=== PATIENT | female | born 1990 | race Caucasian/White ===

== ENCOUNTER 2018-04-24 16:43 | Outpatient (CLI) | payer OTHER ==
[2018-04-24 17:23] LABS: APPEARANCE,URINE SLIGHTLY-CLOUDY; BILIRUBIN,URINE NEGATIVE (NEGATIVE); COLOR,URINE YELLOW; GLUCOSE, URINE 50 mg/dL (NEGATIVE); KETONES,URINE NEGATIVE (NEGATIVE); LEUKOCYTE ESTERASE,URINE MODERATE (NEGATIVE); NITRITE,URINE NEGATIVE (NEGATIVE); PROTEIN,URINE NEGATIVE (NEGATIVE); URINE SPECIFIC GRAVITY 1.005; UROBILINOGEN,URINE NEGATIVE mg/dL (<2.0)
[2018-04-24 17:29] LABS: AMNISURE (ROM) NEGATIVE (NEGATIVE)
[2018-04-24 17:43] LABS: URINE AMPHETAMINES SCREEN NEGATIVE; URINE BARBITURATES SCREEN NEGATIVE; URINE BENZODIAZEPINES SCREEN NEGATIVE; URINE COCAINE SCREEN NEGATIVE; URINE MARIJUANA (THC) SCREEN NEGATIVE; URINE METHADONE SCREEN NEGATIVE; URINE PHENCYCLIDINE SCREEN NEGATIVE
--- NOTE | 2018-04-24 17:55 | Non Stress Test Report ---
Non Stress Test Datetime Report Generated by CPN: 04/24/2018 17:55 DEMOGRAPHIC EGA NST: 39.6 INDICATION Indication for Study: Other Indication for Study (NST) Other: LABOR CHECK MONITORING Monitor Explained: Monitor Explained; Test Explained; Patient Verbalized Understanding Time on Monitor: 04/24/2018 17:16 Time off Monitor: 04/24/2018 17:46 NST Duration: 30 NST INTERVENTIONS NST Interventions: PO Hydration; Reposition Patient BABY A: [id number] BABY A Movement : Present Contraction Frequency : X3 Contraction Frequency : irregular FHR Baseline : 145 Accelerations : 15X15 Variability : Moderate 6-25bpm NST Review: Meets Criteria for Reactive NST NST Review and Verified By : Amelia Camp RNC NST Results: Reactive NST REPORT Report Trigger: Send Report
== END 2018-04-24 17:51 | disposition home or self-care (01) ==
LOC: LC 16:43
PROVIDERS: ATTEND Obstetrics & Gynecology
PROC: 4A1HXCZ Monitoring of Products of Conception, Cardiac Rate, External Approach (ICD-10-PCS; principal; 2018-04-24)
DX: O47.1 False labor at or after 37 completed weeks of gestation (principal); Z3A.39 39 weeks gestation of pregnancy
CPT/HCPCS: 59025; 80307; 81005; 84112

== ENCOUNTER 2018-04-26 23:14 | Inpatient (IN) | payer OTHER ==
[2018-04-26] MEDS ORDERED: RINGERS SOLUTION,LACTATED 1,000 ML IV ONE (23:38)
[2018-04-26] MEDS ORDERED: RINGERS SOLUTION,LACTATED 1,000 ML IV PRN (23:38)
[2018-04-26 23:51] LABS: APPEARANCE,URINE CLOUDY; BILIRUBIN,URINE NEGATIVE (NEGATIVE); COLOR,URINE YELLOW; GLUCOSE, URINE 150 mg/dL (NEGATIVE); KETONES,URINE NEGATIVE (NEGATIVE); LEUKOCYTE ESTERASE,URINE MODERATE (NEGATIVE); NITRITE,URINE NEGATIVE (NEGATIVE); PROTEIN,URINE 100 mg/dL (NEGATIVE); URINE SPECIFIC GRAVITY 1.006; UROBILINOGEN,URINE NEGATIVE mg/dL (<2.0)
[2018-04-27 00:22] LABS: URINE AMPHETAMINES SCREEN NEGATIVE; URINE BARBITURATES SCREEN NEGATIVE; URINE BENZODIAZEPINES SCREEN NEGATIVE; URINE COCAINE SCREEN NEGATIVE; URINE MARIJUANA (THC) SCREEN NEGATIVE; URINE METHADONE SCREEN NEGATIVE; URINE PHENCYCLIDINE SCREEN NEGATIVE
[2018-04-27 00:23] LABS: ABSOLUTE BASOPHILS # (AUTO) 0.1 10^3/uL (0.0-0.2); ABSOLUTE EOSINOPHILS # (AUTO) 0.1 10^3/uL (0.0-0.6); ABSOLUTE LYMPHOCYTES (AUTO) 2.5 10^3/uL (0.5-4.7); ABSOLUTE MONOCYTES (AUTO) 1.3 10^3/uL (0.1-1.4); ABSOLUTE NEUT (AUTO) 12.9 10^3/uL (1.7-8.2); BASOPHILS % (AUTO) 0.5 % (0-2); EOSINOPHILS % (AUTO) 0.7 % (0-6); HEMATOCRIT 35.1 % (36.0-47.0); HEMOGLOBIN 11.7 g/dL (12.0-15.5); LYMPHOCYTES % (AUTO) 14.8 % (13-45); MEAN CORPUSCULAR HGB CONC 33.4 g/dL (32.0-36.0); MEAN CORPUSCULAR VOLUME 96 fl (80-97); MONOCYTES % (AUTO) 7.6 % (3-13); PLATELET COUNT 157 10^3/uL (150-450); RED BLOOD COUNT 3.66 10^6/uL (3.72-5.28); RED CELL DISTRIBUTION WIDTH 15.7 % (11.5-14.0); SEGMENTED NEUTROPHILS % (AUTO) 76.4 % (42-78); TOTAL CELLS COUNTED % (AUTO) 100 %; WHITE BLOOD COUNT 16.9 10^3/uL (4.0-10.5)
--- NOTE | 2018-04-27 01:06 | Admission Physical ---
Datetime Report Generated by CPN: 04/27/2018 01:06 CURRENT ADMISSION Chief Complaint: Uterine Contractions; Suspected Ruptured Membranes Indication for Induction: PROM Admit Impression : Term, Intrauterine ; Ruptured Membranes Admit Plan: Admit to Unit; Initiate Labor Augmentation Protocol ALLERGIES Medication Allergies: No Medication Allergies: No Known Allergies (04/24/2018) Latex: No Latex Allergies OBSTETRICAL HISTORY EDC: 04/25/2018 00:00 : 4 Para: 0 Term: 0 : 0 SAB: 3 IAB: 0 Ectopic: 0 Livin Cesareans: 0 VBACs: 0 Multiple Births: 0 Gestational Diabetes: No Rh Sensitization: No Incompetent Cervix: No PRECIOUS: No Infertility: No ART Treatment: No Uterine Anomaly: No IUGR: No Hx Previous C/S: No Macrosomia: No Hx Loss/Stillborn: No PIH: No Hx : No Placenta Previa/Abruption: No Depression/PP Depression: No PTL/PROM: No Post Hemorrhage: No Current Procedures: Ultrasound; NST Obstetrical History Comments: G1 10 years ago G2 11/2016 G3 06/2017 G4 current SEE RECORDS Alcohol: No Marijuana : No Cocaine: No Other Illicit Drugs: No Cigarettes: Never Smoker. [id number] MEDICAL HISTORY Diabetes: No Blood Transfusion: No Pulmonary Disease (Asthma, TB): No Breast Disease: No Hypertension: No Bike Technician Surgery: No Heart Disease: No Hosp/Surgery: Yes Autoimmune Disorder: No Anesthetic Complications: No Kidney Disease: No Abnormal Pap Smear: Yes Neuro/Epilepsy: No Psychiatric Disorders: No Other Medical Diseases: No Hepatitis/Liver Disease: No Significant Family History: No Varicosities/Phlebitis: No Trauma/Violence : No Thyroid Dysfunction: No Medical History Comments: CN3 precancerous 06/2016, had LEEP 08/2016 INFECTIOUS HISTORY Gonorrhea: No Genital Herpes: No Chlamydia: No Tuberculosis: No Syphilis: No Hepatitis: No HIV/AIDS Exposure: No Rash or Viral Illness: No HPV: No Infectious History Comments: HSV - on valtrex PHYSICAL EXAM General: Normal HEENT: Normal Neurologic: Normal Thyroid: Normal Heart: Normal Lungs: Normal Breast: Normal Back: Normal Abdomen: Normal Genitourinary Exam: Normal Extremities: Normal DTRs: Normal Pelvic Type: Adequate Vital Signs: Reviewed; Within Normal Limits VAGINAL EXAM Dilatation: 4 Effacement: 80 Station: -1 MEMBRANES Pooling: Positive Membranes: Ruptured FETUS A EGA: 40.2 Monitoring: External US FHR- Baseline: 145 Variability: Moderate 6-25bpm Accelerations: 15X15 Decelerations: None FHR Category: Category I Estimated Weight (gm): 3700 Presentation: Vertex Admit Comment: On valtrex for HSV. Had previous LEEP PLANS FOR LABOR AND DELIVERY Labor and Delivery: Plan Pain Management: None Feeding Preference: Formula Benefit of Breast Feed Discussed: Yes Circumcision: N/A INFORMED CONSENT Signature: with User ID: [email or web address]
[2018-04-27] MEDS ORDERED: MISOPROSTOL 0.2 MG TABLET ONE (02:45)
[2018-04-27] MEDS ORDERED: OXYTOCIN/NORMAL SALINE 20 UNIT/1,000 ML RTUINJ ONE (02:45)
[2018-04-27] MEDS ORDERED: LIDOCAINE 1% INJ-PF (10 MG/ML) 30 ML SDV ONE (02:45)
[2018-04-27] MEDS ORDERED: FENTANYL/BUPIVACAINE/NS/PF 300 MCG/150 ML RTUINJ EPI ONE (03:30)
[2018-04-27] MEDS ORDERED: BUPIVACAINE HCL 0.25 % INJ/PF (2.5 MG/1 ML) 30 ML VIAL ONE (03:30)
[2018-04-27] MEDS ORDERED: EPHEDRINE SULFATE INJ 50 MG/1 ML AMPULE ONE ×2 (03:30→12:54)
[2018-04-27] MEDS ORDERED: CEFAZOLIN INJ 1 GM VIAL ONE (12:43)
[2018-04-27] MEDS ORDERED: CITRIC ACID/SODIUM CITRATE ORAL SOLN 15 ML UDCUP ONE (12:43)
[2018-04-27] MEDS ORDERED: SIMETHICONE 80 MG TAB.CHEW PO PRN (12:48)
[2018-04-27] MEDS ORDERED: MEASLES,MUMPS&RUBELLA VACC/PF 0.5 ML VIAL SUBCUT PRN (12:48)
[2018-04-27] MEDS ORDERED: DIPH/PERTUSS(ACELL)/TETANUS VAC/PF 0.5 ML SYR (>=10YO) IM PRN (12:48)
[2018-04-27] MEDS ORDERED: ACETAMINOPHEN 325 MG TABLET PO PRN (12:48)
[2018-04-27] MEDS ORDERED: RINGERS SOLUTION,LACTATED 1,000 ML IV PRN (12:48)
[2018-04-27] MEDS ORDERED: PROMETHAZINE HCL INJ 25 MG/1 ML VIAL IV PRN ×2 (12:48→13:08)
[2018-04-27] MEDS ORDERED: ACETAMINOPHEN 1,000 MG/100 ML RTUPB IV PRN (12:48)
[2018-04-27] MEDS ORDERED: HYDROMORPHONE HCL INJ/PF 2 MG/ML AMPULE IV PRN (12:48)
[2018-04-27] MEDS ORDERED: OXYCODONE-ACETAMINOPHEN 5-325 MG TABLET PO PRN (12:48)
[2018-04-27] MEDS ORDERED: OXYTOCIN/NORMAL SALINE 20 UNIT/1,000 ML RTUINJ IV PRN (12:48)
[2018-04-27] MEDS ORDERED: LIDOCAINE 2% INJ-PF (20 MG/ML) 10 ML AMPUL ONE ×3 (12:50→13:49)
[2018-04-27] MEDS ORDERED: OXYTOCIN 10 UNIT/ML VIAL ONE (12:53)
[2018-04-27] MEDS ORDERED: PROPOFOL INJ 200 MG/20 ML VIAL IV ONE (12:53)
[2018-04-27] MEDS ORDERED: MIDAZOLAM 2 MG/2 ML INJ ONE (12:54)
[2018-04-27] MEDS ORDERED: FENTANYL CITRATE INJ/PF 100 MCG/2 ML AMPUL ONE ×2 (12:54→15:17)
[2018-04-27] MEDS ORDERED: FENTANYL CITRATE INJ/PF 100 MCG/2 ML AMPUL IV PRN ×3 (13:08)
[2018-04-27] MEDS ORDERED: DIPHENHYDRAMINE HCL 50 MG/ML VIAL IV PRN (13:08)
[2018-04-27] MEDS ORDERED: MEPERIDINE HCL/PF INJ 25 MG/1 ML DISP.SYRIN IV PRN (13:08)
[2018-04-27] MEDS ORDERED: MORPHINE SULFATE 10 MG/ML INJ ONE (14:00)
--- NOTE | 2018-04-27 14:10 | Operative Report ---
Operative Report DATE OF SURGERY: 04/27/18 PREOPERATIVE DIAGNOSIS: Arrest of descent POSTOPERATIVE DIAGNOSIS: Same OPERATION: Primary via low transverse uterine incision SURGEON: RENNY MONTE ANESTHESIA: Epidural TISSUE REMOVED OR ALTERED: Placenta COMPLICATIONS: None ESTIMATED BLOOD LOSS: 250 INTRAOPERATIVE FINDINGS: Viable female Apgars 8 9 weight 3900 g. Normal uterus tubes and ovaries PROCEDURE: Patient was taken to the OR and placed in supine position after her spinal anesthesia. She is prepared and draped in sterile fashion. Delgadillo was placed for drainage of the bladder. Low transverse incision was made and carried down the level of the fascia. The fascial incision was made with knife and extended bilaterally with curved Saeed scissors. The fascia was off the rectus muscles using sharp and blunt dissection. The rectus muscles are in the midline. The peritoneum was entered without incident. Bladder blade was placed in uterine segment was identified. A low transverse incision was made creating a bladder flap. Bladder blade was placed low transverse uterine incision was made with the knife and extended with fingertips. The baby was delivered with some fundal pressure. Mouth and nose were suctioned free. The cord is doubly clamped and cut. Baby is passed off to the bumper straightener in attendance. The placenta was manually extracted with trailing membranes. The uterus was externalized wrapped in a moist lap sponge. Uterine contents wiped free. Uterus was closed with a running locking layer of 0 chromic suture using the second layer to imbricate the first completing a double layer closure of the uterus. The serosa was closed with a running 2-0 chromic stitch. The pelvis was irrigated and suctioned free of fluid the uterus was replaced in the abdomen. The abdominal wall peritoneum was closed with running 2-0 chromic stitch. Fascia was closed with a running 0 Vicryl in 2 segments. Pete's layer was brought together with 0 plain gut stitch and the skin was closed with running subcuticular 4-0 undyed Vicryl stitch. The wound was dressed mother and baby did well.
[2018-04-27] MEDS ORDERED: AMPICILLIN SOD/SULBACTAM 1.5 GM VIAL IV SCH (14:15)
[2018-04-27] MEDS ORDERED: HYDROMORPHONE HCL INJ/PF 2 MG/ML AMPULE ONE (14:43)
[2018-04-27] MEDS ORDERED: KETOROLAC TROMETHAMINE INJ/PF 30 MG/1 ML SDV ONE (14:45)
[2018-04-27] MEDS: KETOROLAC TROMETHAMINE INJ/PF 30 MG/1 ML SDV IV SCH ×2 (14:52→22:39)
--- NOTE | 2018-04-27 15:07 | Warning Signs in Babies ---
VOD Warning Signs Datetime Report Generated by [facility]: 04/27/2018 15:07 VOD#[id number] -Warning Signs in Babies: Needs to be viewed. (04/27/2018 14:15:Merle Marlow RN)
[2018-04-27] MEDS ORDERED: AMPICILLIN SOD/SULBACTAM 3 GM VIAL ONE ×2 (15:18→16:14)
[2018-04-27] MEDS: AMPICILLIN SODIUM/SULBACTAM NA 1.5 GM in NORMAL SALINE 50 ML IV SCH ×2 (16:22→21:56)
[2018-04-27] MEDS ORDERED: MORPHINE SULFATE 10 MG/ML INJ IM PRN (16:54)
[2018-04-27] MEDS: DOCUSATE SODIUM 100 MG CAPSULE PO SCH (17:58)
[2018-04-28] MEDS: AMPICILLIN SODIUM/SULBACTAM NA 1.5 GM in NORMAL SALINE 50 ML IV SCH (03:53)
[2018-04-28] MEDS: KETOROLAC TROMETHAMINE INJ/PF 30 MG/1 ML SDV IV SCH (06:10)
[2018-04-28 06:52] LABS: HEMATOCRIT 21.2 % (36.0-47.0); MEAN CORPUSCULAR HEMOGLOBIN 32.7 pg (27.0-33.4); MEAN CORPUSCULAR HGB CONC 33.5 g/dL (32.0-36.0); MEAN CORPUSCULAR VOLUME 98 fl (80-97); PLATELET COUNT 129 10^3/uL (150-450); RED BLOOD COUNT 2.17 10^6/uL (3.72-5.28); RED CELL DISTRIBUTION WIDTH 15.7 % (11.5-14.0); WHITE BLOOD COUNT 21.6 10^3/uL (4.0-10.5)
[2018-04-28 06:54] LABS: HEMOGLOBIN 7.1 g/dL (12.0-15.5)
--- NOTE | 2018-04-28 09:14 | PDOC PROGRESS REPORT ---
Subjective-OB Progress Note for:: 04/28/18 Subjective: Day #1 s/p primary c/s Denies concerns, states lochia is stable, pain well controlled, voiding without difficulty, passing gas. Physical Exam (OB) Vital Signs: Temp Pulse Resp BP Pulse Ox 98.4 F 103 H 16 115/73 96 04/28/18 08:15 04/28/18 08:15 04/28/18 08:15 04/28/18 08:15 04/28/18 08:15 Intake & Output 04/27/18 04/28/18 04/29/18 06:59 06:59 06:59 Intake Total 375 500 Output Total 1500 Balance -1125 500 Weight 81.2 kg - Dressing Removed: No Incision: Dressing, Well Approximated - Lochia Lochia Amount: Scant < 10 ml Lochia Color: Rubra/Red - Abdomen Description: Soft, Round Hernia Present: No Fundal Description: Firm, Midline Describe if Not Midline: Deviated to the right Fundal Height: u/u - u/2 Objective-Diagnostic Laboratory: 04/28/18 06:25 04/28/18 06:25 WBC 21.6 H RBC 2.17 L Hgb 7.1 L D Hct 21.2 L MCV 98 H MCH 32.7 MCHC 33.5 RDW 15.7 H Plt Count 129 L Assessment and Plan(PN) - Assessment and Plan (1) Status post primary low transverse section Is this a current diagnosis for this admission?: Yes Plan: routine post op care (2) HSV (herpes simplex virus) infection Is this a current diagnosis for this admission?: Yes Plan: valtrex for outbreaks (3) Acute blood loss anemia Is this a current diagnosis for this admission?: Yes Plan: ferrous sulfate increase dietary anemia - Time Spent with Patient Time with patient: Less than 15 minutes Critical Time spent with patient: Less than 15 minutes Medications reviewed and adjusted accordingly: Yes - Disposition Anticipated Discharge: Home Within: within 24 hours
[2018-04-28] MEDS: DOCUSATE SODIUM 100 MG CAPSULE PO SCH ×2 (10:21→17:39)
[2018-04-28] MEDS: PRENATAL VITAMIN W DHA CAPSULE PO SCH (10:21)
[2018-04-28] MEDS: IBUPROFEN 800 MG TABLET PO SCH ×3 (11:35→23:26)
[2018-04-28] MEDS: OXYCODONE-ACETAMINOPHEN 5-325 MG TABLET PO PRN (21:13)
[2018-04-29] MEDS: IBUPROFEN 800 MG TABLET PO SCH ×4 (05:57→23:46)
--- NOTE | 2018-04-29 09:21 | PDOC PROGRESS REPORT ---
Subjective-OB Progress Note for:: 04/29/18 Subjective: s/p p c/s day #2 pt doing ok, states pain is controlled, voiding without difficulty, draining, lochia stable, passing gas, tolerating diet Physical Exam (OB) Vital Signs: Temp Pulse Resp BP Pulse Ox 98.3 F 105 H 16 113/66 98 04/29/18 04:05 04/29/18 04:05 04/29/18 04:05 04/29/18 04:05 04/29/18 04:05 Intake & Output 04/28/18 04/29/18 04/30/18 06:59 06:59 06:59 Intake Total 375 1220 Output Total 1500 550 Balance -1125 670 - PIH/Pre-Eclampsia Clonus: Negative Headache: Absent Epigastric Pain: No Visual Changes: No - Dressing Removed: Yes Incision: Well Approximated - Lochia Lochia Amount: Small 10-25 ml Lochia Color: Rubra/Red - Abdomen Description: Soft, Round Hernia Present: No Fundal Description: Firm, Midline Describe if Not Midline: Deviated to the right Fundal Height: u/u - u/2 Objective-Diagnostic Laboratory: 04/28/18 06:25 Assessment and Plan(PN) - Assessment and Plan (1) Status post primary low transverse section Is this a current diagnosis for this admission?: Yes Plan: routine post op care may go home if baby is d/c may cancel d/c if baby is not d/c (2) HSV (herpes simplex virus) infection Is this a current diagnosis for this admission?: Yes Plan: valtrex (3) Acute blood loss anemia Is this a current diagnosis for this admission?: Yes Plan: ferrous sulfate increase dietary iron - Time Spent with Patient Time with patient: Less than 15 minutes Critical Time spent with patient: Less than 15 minutes Medications reviewed and adjusted accordingly: Yes - Disposition Anticipated Discharge: Home Within: within 24 hours
[2018-04-29] MEDS: DOCUSATE SODIUM 100 MG CAPSULE PO SCH ×2 (09:24→17:56)
[2018-04-29] MEDS: PRENATAL VITAMIN W DHA CAPSULE PO SCH (09:24)
--- NOTE | 2018-04-29 09:28 | PDOC DISCHARGE SUMMARY ---
Final Diagnosis Discharge Date: 04/29/18 - Final Diagnosis (1) HSV (herpes simplex virus) infection Is this a current diagnosis for this admission?: Yes (2) Status post primary low transverse section Is this a current diagnosis for this admission?: Yes (3) Acute blood loss anemia Is this a current diagnosis for this admission?: Yes Discharge Data - Discharge Medication Prescriptions: Oxycodone HCl/Acetaminophen [Percocet 5-325 mg Tablet] 2 tab PO Q4HP PRN #30 tablet PRN Reason: Docusate Sodium [Colace 100 mg Capsule] 100 mg PO BID #60 capsule Ferrous Sulfate 325 mg PO BID #60 tablet Ibuprofen [Motrin 800 mg Tablet] 800 mg PO Q6 #60 tablet Home Medications: No122/Iron/Folic Acid [ Multi Tablet] 1 tab PO DAILY 04/24/18 Valacyclovir HCl [Valtrex 500 mg Tablet] 1 tab PO BID 04/27/18 Docusate Sodium [Colace 100 mg Capsule] 100 mg PO BID #60 capsule 04/29/18 Ferrous Sulfate 325 mg PO BID #60 tablet 04/29/18 Ibuprofen [Motrin 800 mg Tablet] 800 mg PO Q6 #60 tablet 04/29/18 Oxycodone HCl/Acetaminophen [Percocet 5-325 mg Tablet] 2 tab PO Q4HP PRN #30 tablet 04/29/18 Gestational Age: 40.2 Reason(s) for Admission: Onset of Labor Procedures: NST Intrapartum Procedure(s): : Low Cervical, Transverse - [place] Data Baby 1 Female at 1 minute: 8 at 5 minutes: 9 Weight: 3900 kg Home with Mother: Yes Complications: Yes - ? lesion on back of baby - Diagnosis Test Laboratory: Temp Pulse Resp BP Pulse Ox 98.3 F 105 H 16 113/66 98 04/29/18 04:05 04/29/18 04:05 04/29/18 04:05 04/29/18 04:05 04/29/18 04:05 04/26/18 04/27/18 04/28/18 23:33 00:05 06:25 RBC 3.66 L 2.17 L Hgb 11.7 L 7.1 L D Hct 35.1 L 21.2 L Urine Opiates Screen NEGATIVE - Discharge information/Instructions Discharge Activity: Activity As Tolerated, Pelvic Rest, No tub bath Discharge Diet: Regular Disposition: HOME, SELF-CARE Follow up with: [facility] in: 1, Weeks
[2018-04-29] MEDS: OXYCODONE-ACETAMINOPHEN 5-325 MG TABLET PO PRN (20:30)
[2018-04-30] MEDS: IBUPROFEN 800 MG TABLET PO SCH (05:26)
[2018-04-30 09:02] VITALS: BP 118/58
--- NOTE | 2018-05-05 08:39 | Delivery Summary ---
Del Sum A-C Datetime Report Generated by CPN: 05/05/2018 08:39 DELIVERY PERSONNEL DELIVERY PERSONNEL: [id number] Delivery Doctor:: Joaquin Grimes MD Anesthesiologist:: Jose Elias Patel MD EAR MACHINE OPERATOR:: Leah Osman CRNA EAR MACHINE OPERATOR:: eLah Osman CRNA Labor and Delivery Nurse:: Merle Marlow RNadmissions nurse Nurse:: Victorino Whitlock RN Kiln Operator:: Merle Marlow RN Kiln Operator:: Ave Squires RN Hha:: Dr. James Sandoval Nursery Nurse:: Mira Wynn RN Nursery Nurse:: Gypsy Rodriguez RN Student Observers:: Joan Rehman RN Church Business Administrator/SEBD TEACHER: Maegan Luciano CST Church Business Administrator/SEBD TEACHER: Bella Somers, REGISTRATION MANAGER Church Business Administrator/SEBD TEACHER: Bella Somers, REGISTRATION MANAGER Church Business Administrator/SEBD TEACHER: Maegan Luciano, REGISTRATION MANAGER MATERNAL INFORMATION Delivery Anesthesia: Epidural Medications After Delivery: Pitocin Bolus-Please Comment Meds After Delivery Comment: Pitocin 20 units in 1 L NS bolusing per order Maternal Complications: None LABOR SUMMARY EDC: 04/25/2018 00:00 No. Babies in Womb: 1 Attempted: No Labor Anesthesia: Epidural LABOR INFORMATION Reason for Induction: Not Applicable Onset of Labor: 04/27/2018 04:00 Complete Dilatation: 04/27/2018 09:11 Oxytocin: Induction Group B Beta Strep: negative Antibiotics # of Doses: 0 Antibiotics Time of Last Dose: n/a Name of Antibiotic Given: n/a Steroids Given: None Reason Steroids Not Administered: Not Applicable MEMBRANES Membranes Rupture Method: Spontaneous Rupture of Membranes: 04/26/2018 22:00 Length of Rupture (hr): 15.53 Amniotic Fluid Color: Clear Amniotic Fluid Amount: Small Amniotic Fluid Odor: Normal STAGES OF LABOR Stage 1 hr: 5 Stage 1 min: 11 Stage 2 hr: 4 Stage 2 min: 21 Stage 3 hr: 0 Stage 3 min: 1 Total Time in Labor hr: 9 Total Time in Labor min: 33 VAGINAL DELIVERY Episiotomy: None Laceration #1: None Laceration Extension #1: N/A Sponge Count Correct: N/A Sharps Count Correct: N/A CSECTION DELIVERY Primary Indication: Failure of Descent Secondary Indication: N/A CSection Urgency: Non-Scheduled CSection Incidence: Primary Labor: Labor Elective: Nonelective CSection Incision: Lower Uterine Transverse BABY A INFORMATION Delivery Date/Time: 04/27/2018 13:32 Method of Delivery: Born in Route : No : N/A Forceps: N/A Vacuum Extraction: N/A Shoulder Dystocia : No PRESENTATION/POSITION BABY A Presentation: Cephalic Cephalic Presentation: Vertex Breech Presentation: N/A PLACENTA INFORMATION BABY A Placenta Delivery Time : 04/27/2018 13:33 Placenta Method of Delivery: Manual Removal Placenta Status: Delivered SCORES BABY A Heart Rate 1 min: >100 bpm Resp Effort 1 min: Good Cry Reflex Irritability 1 min: Cough or Sneeze or Pulls Away Muscle Tone 1 min: Active Motion Color 1 min: Blue/Pale Resuscitation Effort 1 min: Tactile Stimulation SCORE 1 MIN: 8 Heart Rate 5 min: >100 bpm Resp Effort 5 min: Good Cry Reflex Irritability 5 min: Cough or Sneeze or Pulls Away Muscle Tone 5 min: Active Motion Color 5 min: Body [place], Extremities Blue Resuscitation Effort 5 min: Tactile Stimulation SCORE 5 MIN: 9 INFANT INFORMATION BABY A Gestational Age at Delivery: 40.2 Gestational Status: Full Term- 39- 40.6 Weeks Infant Outcome : Liveborn Infant Condition : Stable Infant Sex: Female IDENTIFICATION BABY A Verification Date/Time: 04/27/2018 13:27 ID Band Number: [id number] Mother's Name Verified: Yes Infant RN Verifying : Jaciel, RN/, RN WEIGHT/LENGTH BABY A Birthweight (gm): 3945 Weight (lb): 8 Infant Weight (oz): 11 Length (in): 21.34 Length (cm): 54.20 CORD INFORMATION BABY A No. Cord Vessels: 3 Nuchal Cord : N/A Cord Blood Taken: Yes-For Eval (Mom's Blood Type - or O+) Infant Suction: Mouth; Nose ASSESSMENT BABY A Infant Complications: None Respirations: Appears Normal Skin to Skin: Yes Skin to Skin: Yes Skin to Skin Time (min): 10 Care By: Ilya Wynn RN, [facility] Transferred To: [place] [facility] BABY B INFORMATION : N/A
== END 2018-04-30 10:25 | disposition home or self-care (01) | DRG 765 ==
LOC: LC 23:14 → LR 23:42 → 2S 04-27 16:56
PROVIDERS: ADMIT Obstetrics & Gynecology; ATTEND Obstetrics & Gynecology
PROC: 3E033VJ Introduction of Other Hormone into Peripheral Vein, Percutaneous Approach (ICD-10-PCS; 2018-04-26)
PROC: 4A1HXCZ Monitoring of Products of Conception, Cardiac Rate, External Approach (ICD-10-PCS; 2018-04-26)
PROC: 10D00Z1 Extraction of Products of Conception, Low, Open Approach (ICD-10-PCS; principal; 2018-04-27)
DX: O62.1 Secondary uterine inertia (principal); O98.32 Other infections with a predominantly sexual mode of transmission complicating childbirth; D62 Acute posthemorrhagic anemia; A60.00 Herpesviral infection of urogenital system, unspecified; O99.02 Anemia complicating childbirth; Z3A.40 40 weeks gestation of pregnancy; Z37.0 Single live birth
CPT/HCPCS: 1961; 36415; 80307; 81005; 85025; 85027; 86592; 86850; 86900; 86901; 88307; 90707; 94799; J0295; J0690; J1170; J1885; J2250; J2270; J2590; J2704; J3010; J3490

== ENCOUNTER 2019-07-18 05:02 | Inpatient (IN) | payer OTHER ==
[2019-07-17 10:28] LABS: ABSOLUTE EOSINOPHILS # (AUTO) 0.1 10^3/uL (0.0-0.6); ABSOLUTE LYMPHOCYTES (AUTO) 2.2 10^3/uL (0.5-4.7); ABSOLUTE MONOCYTES (AUTO) 0.9 10^3/uL (0.1-1.4); ABSOLUTE NEUT (AUTO) 9.9 10^3/uL (1.7-8.2); BASOPHILS % (AUTO) 0.2 % (0-2); EOSINOPHILS % (AUTO) 0.7 % (0-6); HEMATOCRIT 36.6 % (36.0-47.0); HEMOGLOBIN 12.3 g/dL (12.0-15.5); LYMPHOCYTES % (AUTO) 16.9 % (13-45); MEAN CORPUSCULAR HEMOGLOBIN 31.6 pg (27.0-33.4); MEAN CORPUSCULAR HGB CONC 33.6 g/dL (32.0-36.0); MEAN CORPUSCULAR VOLUME 94 fl (80-97); MONOCYTES % (AUTO) 6.5 % (3-13); PLATELET COUNT 171 10^3/uL (150-450); RED BLOOD COUNT 3.88 10^6/uL (3.72-5.28); RED CELL DISTRIBUTION WIDTH 13.6 % (11.5-14.0); SEGMENTED NEUTROPHILS % (AUTO) 75.7 % (42-78); TOTAL CELLS COUNTED % (AUTO) 100 %; WHITE BLOOD COUNT 13.1 10^3/uL (4.0-10.5)
[2019-07-17 10:38] LABS: APPEARANCE,URINE SLIGHTLY-CLOUDY; BILIRUBIN,URINE NEGATIVE (NEGATIVE); COLOR,URINE YELLOW; GLUCOSE, URINE NEGATIVE (NEGATIVE); KETONES,URINE NEGATIVE (NEGATIVE); LEUKOCYTE ESTERASE,URINE LARGE (NEGATIVE); NITRITE,URINE NEGATIVE (NEGATIVE); PROTEIN,URINE NEGATIVE (NEGATIVE); URINE SPECIFIC GRAVITY 1.012; UROBILINOGEN,URINE NEGATIVE mg/dL (<2.0)
[2019-07-17 10:51] LABS: URINE AMPHETAMINES SCREEN NEGATIVE; URINE BARBITURATES SCREEN NEGATIVE; URINE BENZODIAZEPINES SCREEN NEGATIVE; URINE COCAINE SCREEN NEGATIVE; URINE MARIJUANA (THC) SCREEN NEGATIVE; URINE METHADONE SCREEN NEGATIVE; URINE PHENCYCLIDINE SCREEN NEGATIVE
[~2019-07-18 05:02] MED LIST: CEFAZOLIN SODIUM 2 GM in DEXTROSE 5%-WATER 100 ML IV PRN; LACTATED RINGERS 1000 ML IV PRN; LIDOCAINE 0.5% INJ-PF (5 MG/ML) 50 ML SDV SUBCUT PRN; RINGERS SOLUTION,LACTATED 1,000 ML IV PRN
[2019-07-18] MEDS ORDERED: CITRIC ACID/SODIUM CITRATE ORAL SOLN 15 ML UDCUP ONE (07:19)
[2019-07-18] MEDS ORDERED: PROPOFOL INJ 200 MG/20 ML VIAL IV ONE (07:19)
[2019-07-18] MEDS ORDERED: OXYTOCIN/NORMAL SALINE 20 UNIT/1,000 ML RTUINJ ONE ×2 (07:19→08:41)
[2019-07-18] MEDS ORDERED: MIDAZOLAM 2 MG/2 ML INJ ONE (07:19)
[2019-07-18] MEDS ORDERED: OXYTOCIN 10 UNIT/ML VIAL ONE (07:19)
[2019-07-18] MEDS ORDERED: FENTANYL CITRATE INJ/PF 100 MCG/2 ML AMPUL ONE (07:19)
[2019-07-18] MEDS ORDERED: EPHEDRINE SULFATE INJ 50 MG/1 ML AMPULE ONE (07:20)
[2019-07-18] MEDS ORDERED: METHYLERGONOVINE MALEATE INJ/PF 0.2 MG/1 ML AMPULE ONE (08:18)
[2019-07-18] MEDS ORDERED: PROMETHAZINE HCL INJ 25 MG/1 ML VIAL IV PRN ×3 (08:46→09:17)
[2019-07-18] MEDS ORDERED: DIPHENHYDRAMINE HCL 50 MG/ML VIAL IV PRN (08:46)
[2019-07-18] MEDS ORDERED: MEPERIDINE HCL/PF INJ 25 MG/1 ML DISP.SYRIN IV PRN (08:46)
--- NOTE | 2019-07-18 09:11 | PDOC DELIVERY SUMMARY ---
Delivery Summary - Maternal Hx : V Hx Para: I Hx # Term Pregnancies: 1 Hx Total # of Abortions (Sponateous & Elective): 3 RHONDA: 07/24/19 Gestational Age: 39+1 Risk Factors: Previous Ruptured Membranes: AROM Time of Rupture: 08:15 Fluids: Clear - Delivery Presentation: Vertex Heart Rate Monitoring: Done Pre-Operatively Uterine Contraction Monitoring: External Support Person Present: Yes Location: OR : Scheduled Placenta: Within Normal Limits Placenta Description: Normal appearing Number of Vessels (Cord): 3 Nuchal Cord: Yes - x 2 Delivery of Placenta Date: 07/18/19 Delivery of Placenta Time: 08:16 Estimated Blood Loss: 900 ml - Medications Type of Anesthesia:: Spinal - Delivery Personnel Sales Representative Printing Paper: JOSE WALKER MD: GADIEL BLAIR
[2019-07-18] MEDS ORDERED: OXYTOCIN/NORMAL SALINE 20 UNIT/1,000 ML RTUINJ IV PRN (09:17)
[2019-07-18] MEDS ORDERED: DIPH/PERTUSS(ACELL)/TETANUS VAC/PF 0.5 ML SYR (>=10YO) IM PRN (09:17)
[2019-07-18] MEDS ORDERED: OXYCODONE-ACETAMINOPHEN 5-325 MG TABLET PO PRN (09:17)
[2019-07-18] MEDS ORDERED: SIMETHICONE 80 MG TAB.CHEW PO PRN (09:17)
[2019-07-18] MEDS ORDERED: ACETAMINOPHEN 325 MG TABLET PO PRN (09:17)
[2019-07-18] MEDS ORDERED: RINGERS SOLUTION,LACTATED 1,000 ML IV PRN (09:17)
[2019-07-18] MEDS ORDERED: ACETAMINOPHEN 1,000 MG/100 ML RTUPB IV PRN (09:17)
--- NOTE | 2019-07-18 09:17 | Operative Report ---
Operative Report DATE OF SURGERY: 07/18/19 PREOPERATIVE DIAGNOSIS: 1. Intrauterine at 39-1/7 weeks. 2. Fer an section x1. 3. Desires permanent sterilization. 4. GBS negative. 5. HSV-2 positive. 6. Rh+. 7. Rubella immune POSTOPERATIVE DIAGNOSIS: Same OPERATION: 1. Repeat section. 2. Bilateral tubal occlusion with Filshie clips SURGEON: GADIEL BOLANOS ANESTHESIA: Spinal TISSUE REMOVED OR ALTERED: Placenta COMPLICATIONS: None ESTIMATED BLOOD LOSS: 900 mL INTRAOPERATIVE FINDINGS: Male with a cephalic presentation with nuchal cord x2; Apgars 9 at 1, 9 at 5 with a weight of 7 pounds 6 ounces; normal uterus, bilateral tubes and ovaries PROCEDURE: The patient was taken to the operating room where spinal anesthesia was obtained and found to be adequate. She was then prepped and draped in the normal sterile fashion and placed in the dorsal supine position with a leftward tilt. Her old hypertrophic Pfannenstiel scar was cut out and a Pfannenstiel skin incision was then made and carried through to the underlying layers of the fascia with the scalpel. The fascia was incised in the midline and the incision extended laterally with the Saeed scissors. The superior aspect of the fascial incision was then grasped with Sania clamps elevated and the underlying rectus muscles dissected off both bluntly and sharply. Attention was then turned to the inferior aspect of the fascial incision which in a similar fashion was grasped, tented up with Sania clamps, and the rectus muscles dissected off both bluntly and sharply. The rectus muscles were then in the midline and the peritoneum was identified and entered both sharply and bluntly. The peritoneal incision was then extended superiorly and inferiorly with good visualization of the bladder. The bladder blade was inserted and the vesicouterine peritoneum identified grasped with [place] pickups and entered sharply with the Metzenbaum scissors. This incision was then extended laterally with the Metzenbaum scissors and a bladder flap created digitally. The bladder blade was then reinserted and the lower uterine segment incised in a transverse fashion with the scalpel. The uterine incision was then extended bluntly and with the bandage scissors. The bladder blade was removed and the infant's head was delivered from cephalic presentation atraumatically. The cord doubly clamped and cut. The infant was handed off to waiting manager unix. The placenta was then delivered manually and the uterus exteriorized and cleared of all clots and debris. The uterine incision was then repaired with 0 Vicryl in a running locked fashion. 0-Chromic was used to obtain hemostasis via imbrication of the initial layer. The bladder flap was then repaired with 3-0 Vicryl in a running fashion. Attention was then turned to the tubal occlusion. The left tube was identified and held with a Fairlee clamp. A Filshie clip was then placed in the middle of the tube. Hemostasis was noted. The same was done on the right side and hemostasis was noted. The abdomen was then copiously irrigated with warm normal saline. The uterus was returned to the patient's abdomen and Interceed was placed overlying the uterine incision, as well as a piece placed vertically on the anterior surface of the uterus, to prevent adhesions. The gutters were cleared of all clots and debris. All operative sites were noted to be hemostatic. The fascia was reapproximated with 0 Vicryl in a running fashion from each lateral edge to the midline. The subcutaneous fat layer was then closed in an interrupted fashion with 3-0 vicryl. The skin was closed with 4-0 Monocryl in a running, subcuticular fashion. The patient tolerated the procedure well. Sponge, lap, needle and instrument counts are correct x 2. 2 g of Ancef were given prior to skin incision. The patient was taken to the recovery area awake and in stable condition.
[2019-07-18] MEDS ORDERED: PRENATAL VITAMIN W DHA CAPSULE PO ONE (09:50)
[2019-07-18] MEDS ORDERED: HYDROMORPHONE HCL INJ/PF 2 MG/ML AMPULE ONE (09:51)
[2019-07-18] MEDS ORDERED: DOCUSATE SODIUM 100 MG CAPSULE ONE (09:51)
[2019-07-18] MEDS: HYDROMORPHONE HCL INJ/PF 2 MG/ML AMPULE IV PRN ×2 (09:55→10:33)
[2019-07-18] MEDS: PRENATAL VITAMIN W DHA CAPSULE PO SCH (09:55)
[2019-07-18] MEDS: DOCUSATE SODIUM 100 MG CAPSULE PO SCH ×2 (09:55→17:09)
[2019-07-18] MEDS ORDERED: IBUPROFEN 800 MG TABLET PO SCH (12:00)
[2019-07-18] MEDS: OXYCODONE-ACETAMINOPHEN 5-325 MG TABLET PO PRN ×2 (12:07→20:29)
[2019-07-18] MEDS ORDERED: KETOROLAC TROMETHAMINE INJ/PF 30 MG/1 ML SDV IV SCH (14:00)
[2019-07-18] MEDS ORDERED: KETOROLAC TROMETHAMINE 60 MG/2 ML SDV ONE (14:52)
[2019-07-18] MEDS ORDERED: METOCLOPRAMIDE HCL INJ/PF 10 MG/2 ML SDV ONE (14:52)
[2019-07-18] MEDS ORDERED: ONDANSETRON HCL INJ/PF 4 MG/2 ML SDV ONE (14:52)
[2019-07-18] MEDS ORDERED: PHENYLEPHRINE HCL INJ/PF 10 MG/1 ML SDV ONE (14:52)
[2019-07-18] MEDS: KETOROLAC TROMETHAMINE INJ/PF 30 MG/1 ML SDV IV SCH (17:07)
[2019-07-19] MEDS: KETOROLAC TROMETHAMINE INJ/PF 30 MG/1 ML SDV IV SCH (01:19)
[2019-07-19 06:09] LABS: HEMATOCRIT 36.6 % (36.0-47.0); HEMOGLOBIN 12.3 g/dL (12.0-15.5); MEAN CORPUSCULAR HEMOGLOBIN 31.9 pg (27.0-33.4); MEAN CORPUSCULAR HGB CONC 33.6 g/dL (32.0-36.0); MEAN CORPUSCULAR VOLUME 95 fl (80-97); PLATELET COUNT 147 10^3/uL (150-450); RED BLOOD COUNT 3.86 10^6/uL (3.72-5.28); RED CELL DISTRIBUTION WIDTH 14.1 % (11.5-14.0); WHITE BLOOD COUNT 14.3 10^3/uL (4.0-10.5)
[2019-07-19] MEDS: OXYCODONE-ACETAMINOPHEN 5-325 MG TABLET PO PRN ×2 (06:10→12:38)
[2019-07-19] MEDS ORDERED: IRON SUCROSE COMPLEX INJ/PF 100 MG/5 ML SDV IV ONE (09:00)
[2019-07-19] MEDS: PRENATAL VITAMIN W DHA CAPSULE PO SCH (09:47)
[2019-07-19] MEDS: DOCUSATE SODIUM 100 MG CAPSULE PO SCH ×2 (09:47→18:12)
--- NOTE | 2019-07-19 12:34 | PDOC PROGRESS REPORT ---
Subjective-OB Progress Note for:: 07/19/19 Subjective: reports bleeding slowing, pain controlled with current meds. denies needs, +passing gas Physical Exam (OB) Vital Signs: Temp Pulse Resp BP Pulse Ox 97.6 F 80 18 113/69 100 07/19/19 11:36 07/19/19 11:36 07/19/19 11:36 07/19/19 11:36 07/19/19 11:36 Intake & Output 07/18/19 07/19/19 07/20/19 06:59 06:59 06:59 Intake Total 980 Output Total 2300 Balance -1320 Weight 81.647 kg - Dressing Removed: No Incision: Dressing, Well Approximated Closure Type: op site - Abdomen Description: Soft Hernia Present: No Fundal Description: Firm Fundal Height: u/u - u/2 - Abdominal Inspection: Normal Tenderness: Nontender - Extremities Lower extremities: Dipesh's sign - neg Calf: Normal, Nontender Objective-Diagnostic Laboratory: 07/19/19 05:44 07/19/19 05:44 WBC 14.3 H RBC 3.86 Hgb 12.3 Hct 36.6 MCV 95 MCH 31.9 MCHC 33.6 RDW 14.1 H Plt Count 147 L Assessment and Plan(PN) - Assessment and Plan (1) Acute blood loss anemia Is this a current diagnosis for this admission?: Yes (2) HSV (herpes simplex virus) infection Is this a current diagnosis for this admission?: Yes (3) Status post primary low transverse section Is this a current diagnosis for this admission?: Yes - Time Spent with Patient Time with patient: Less than 15 minutes Medications reviewed and adjusted accordingly: Yes - Disposition Anticipated Discharge: Home Within: within 48 hours
[2019-07-19] MEDS: IBUPROFEN 800 MG TABLET PO SCH ×2 (12:38→18:12)
[2019-07-20] MEDS: IBUPROFEN 800 MG TABLET PO SCH ×3 (00:58→11:10)
[2019-07-20] MEDS: KETOROLAC TROMETHAMINE INJ/PF 30 MG/1 ML SDV IV SCH ×2 (05:11→11:13)
--- NOTE | 2019-07-20 09:34 | PDOC PROGRESS REPORT ---
Subjective-OB Progress Note for:: 07/20/19 Subjective: Doing well, ready to go home, pain under control, scant bleeding, eating, no nausea, bottle feeding Physical Exam (OB) Vital Signs: Temp Pulse Resp BP Pulse Ox 97.9 F 78 12 108/66 99 07/20/19 07:21 07/20/19 07:21 07/20/19 07:21 07/20/19 07:21 07/20/19 07:21 Intake & Output 07/19/19 07/20/19 07/21/19 06:59 06:59 06:59 Intake Total 980 350 Output Total 2300 Balance -1320 350 - PIH/Pre-Eclampsia DTR's: 1 + Clonus: Negative Headache: Absent Epigastric Pain: No Visual Changes: No - Dressing Removed: No Incision: Dressing Closure Type: op site - Lochia Lochia Amount: Scant < 10 ml Lochia Color: Rubra/Red - Abdomen Description: Soft, Round Hernia Present: No Fundal Description: Firm, Midline Fundal Height: u/u - u/2 Objective-Diagnostic Laboratory: 07/19/19 05:44 Assessment and Plan(PN) - Assessment and Plan (1) Status post primary low transverse section Is this a current diagnosis for this admission?: Yes (2) HSV (herpes simplex virus) infection Is this a current diagnosis for this admission?: Yes (3) Acute blood loss anemia Is this a current diagnosis for this admission?: Yes - Time Spent with Patient Time with patient: Less than 15 minutes Medications reviewed and adjusted accordingly: Yes - Disposition Anticipated Discharge: Home Within: within 24 hours
--- NOTE | 2019-07-20 09:39 | PDOC DISCHARGE SUMMARY ---
Final Diagnosis Discharge Date: 07/20/19 - Final Diagnosis (1) Status post primary low transverse section Is this a current diagnosis for this admission?: Yes (2) HSV (herpes simplex virus) infection Is this a current diagnosis for this admission?: Yes (3) Acute blood loss anemia Is this a current diagnosis for this admission?: Yes Discharge Data - Discharge Medication Prescriptions: Oxycodone HCl/Acetaminophen [Percocet 5-325 mg Tablet] 1 tab PO Q4HP PRN #20 tablet PRN Reason: Ibuprofen [Motrin 800 mg Tablet] 800 mg PO Q6 #60 tablet Home Medications: No122/Iron/Folic Acid [ Multi Tablet] 1 tab PO DAILY 04/24/18 Ibuprofen [Motrin 800 mg Tablet] 800 mg PO Q6 #60 tablet 07/20/19 Oxycodone HCl/Acetaminophen [Percocet 5-325 mg Tablet] 1 tab PO Q4HP PRN #20 tablet 07/20/19 Gestational Age: 37 Reason(s) for Admission: Ceasarean Section-Repeat, Tubal Ligation Procedures: NST, Ultrasound Intrapartum Procedure(s): : Low Cervical, Transverse - Diagnosis Test Laboratory: Temp Pulse Resp BP Pulse Ox 97.9 F 78 12 108/66 99 07/20/19 07:21 07/20/19 07:21 07/20/19 07:21 07/20/19 07:21 07/20/19 07:21 07/17/19 07/17/19 07/19/19 09:50 09:55 05:44 RBC 3.88 3.86 Hgb 12.3 12.3 Hct 36.6 36.6 Urine Opiates Screen NEGATIVE - Discharge information/Instructions Discharge Activity: Activity As Tolerated, No Lifting Over 10 Pounds, No Lifting/Push/Pulling, Pelvic Rest, No tub bath Discharge Diet: As Tolerated, Regular Disposition: HOME, SELF-CARE Follow up with: [facility] in: 1, Weeks
[2019-07-20] MEDS: DOCUSATE SODIUM 100 MG CAPSULE PO SCH (10:40)
[2019-07-20] MEDS: PRENATAL VITAMIN W DHA CAPSULE PO SCH (10:40)
[2019-07-20 12:00] VITALS: BP 123/67
== END 2019-07-20 12:50 | disposition home or self-care (01) | DRG 784 ==
LOC: 2S 05:02
PROVIDERS: ADMIT Obstetrics & Gynecology; ATTEND Obstetrics & Gynecology
PROC: 0UL70CZ Occlusion of Bilateral Fallopian Tubes with Extraluminal Device, Open Approach (ICD-10-PCS; 2019-07-18)
PROC: 10D00Z1 Extraction of Products of Conception, Low, Open Approach (ICD-10-PCS; principal; 2019-07-18 07:45)
DX: O34.211 Maternal care for low transverse scar from previous cesarean delivery (principal); O98.52 Other viral diseases complicating childbirth; D62 Acute posthemorrhagic anemia; N85.8 Other specified noninflammatory disorders of uterus; O69.81X0 Labor and delivery complicated by cord around neck, without compression, not applicable or unspecified; B00.9 Herpesviral infection, unspecified; O99.013 Anemia complicating pregnancy, third trimester; Z30.2 Encounter for sterilization; Z3A.39 39 weeks gestation of pregnancy; Z37.0 Single live birth
CPT/HCPCS: 1961; 36415; 59025; 80307; 81001; 85025; 85027; 86850; 86900; 86901; 94799; C1765; J0690; J1170; J1756; J1885; J2210; J2250; J2370; J2405; J2590; J2704; J2765; J3010; J3490; J7060; J7120